=== PATIENT | male | born 1990 | race Caucasian/White ===

== ENCOUNTER 2020-07-31 11:43 | Emergency (ER) | payer SELFPAY ==
[~2020-07-31] VITALS: Wt 77.1 kg
[2020-07-31] MEDS ORDERED: CEPHALEXIN500 M1 PO (15:36)
== END 2020-07-31 16:13 | disposition home or self-care (01) ==
LOC: ED 11:43
DX: S61.412A Laceration without foreign body of left hand, initial encounter (principal); F17.200 Nicotine dependence, unspecified, uncomplicated; Z88.0 Allergy status to penicillin; W26.0XXA Contact with knife, initial encounter; Y93.89 Activity, other specified; Y92.89 Other specified places as the place of occurrence of the external cause; Y99.8 Other external cause status